=== PATIENT | female | born 1960 | race African-American/Black ===

== ENCOUNTER 2017-01-22 15:46 | Emergency (ER) | payer SELFPAY ==
[~2017-01-22] VITALS: Ht 149.9 cm; Wt 64.0 kg
[2017-01-22] MEDS ORDERED: KETOROLAC 60MG/2ML VIAL IM ONE (18:15)
[2017-01-22 19:14] VITALS: BP 130/88
== END 2017-01-22 19:25 | disposition home or self-care (01) ==
LOC: ER 16:58
DX: M65.4 Radial styloid tenosynovitis [de Quervain] (principal); M25.521 Pain in right elbow; F12.10 Cannabis abuse, uncomplicated; X58.XXXA Exposure to other specified factors, initial encounter; Y93.89 Activity, other specified; Y92.89 Other specified places as the place of occurrence of the external cause; Y99.8 Other external cause status
CPT/HCPCS: 96372; 99283; J1885

== ENCOUNTER 2017-01-28 10:48 | Emergency (ER) | payer SELFPAY ==
[~2017-01-28] VITALS: Ht 149.9 cm; Wt 64.0 kg
[2017-01-28 12:43] VITALS: BP 142/77
[2017-01-28] MEDS ORDERED: KETOROLAC 60MG/2ML VIAL IM ONE (12:45)
== END 2017-01-28 13:10 | disposition home or self-care (01) ==
LOC: ER 12:07
DX: M65.4 Radial styloid tenosynovitis [de Quervain] (principal); I10 Essential (primary) hypertension; F12.10 Cannabis abuse, uncomplicated; F17.200 Nicotine dependence, unspecified, uncomplicated; Z98.890 Other specified postprocedural states
CPT/HCPCS: 29125; 96372; 99283; J1885

== ENCOUNTER 2017-02-24 11:52 | Inpatient (IN) | payer SELFPAY ==
[~2017-02-24] VITALS: Ht 154.9 cm; Wt 70.5 kg
[2017-02-24] MEDS ORDERED: KETOROLAC 30MG/ML VIAL IV STA (13:52)
[2017-02-24] MEDS ORDERED: SODIUM CHLORIDE 0.9% 1,000 ML IV ONE (13:52)
[2017-02-24] MEDS ORDERED: ONDANSETRON HCL 4MG/2ML VIAL IV STA (13:52)
[2017-02-24 14:18] LABS: HEMATOCRIT. 33.5 % (36.0-48.0); HEMOGLOBIN. 11.3 g/dL (12.0-16.0); MEAN CORPUSCULAR HEMOGLOBIN 30.7 pg (28.0-32.0); MEAN CORPUSCULAR VOLUME 91.1 fL (81.0-99.0); MEAN PLATELET VOLUME 7.6 fl (7.4-10.4); PLATELET 313 x1000/uL (130-400); RED BLOOD CELL COUNT 3.68 mill/uL (4.2-5.4); RED CELL DISTRIBUTION WIDTH 14.2 % (11.6-14.6)
[2017-02-24 14:24] LABS: CHLORIDE 103 mEq/L (98-107)
[2017-02-24 14:26] LABS: INR 1.1; PROTHROMBIN TIME 11.4 sec
[2017-02-24 14:30] LABS: CARBON DIOXIDE 24 mEq/L (21-32)
[2017-02-24 15:21] LABS: PLATELET ESTIMATE NORMAL
[2017-02-24 15:41] LABS: CLARITY URINE CLOUDY (CLEAR); COLOR URINE YELLOW (YELLOW); GLUCOSE URINE NEGATIVE (NEGATIVE); KETONES URINE NEGATIVE (NEGATIVE); LEUKOCYTE ESTERASE URINE 3+ (NEGATIVE); NITRITE URINE NEGATIVE (NEGATIVE); OCCULT BLOOD URINE TRACE (NEGATIVE); PROTEIN URINE NEGATIVE (NEGATIVE); SPECIFIC GRAVITY URINE 1.011 (1.005-1.030)
[2017-02-24] MEDS ORDERED: SODIUM CHLORIDE 0.45% 1,000 ML IV SCH (20:02)
[2017-02-24] MEDS ORDERED: NA PHOS,M-B/NA PHOS,DI-BA ENEMA 118ML PR PRN (20:15)
[2017-02-24] MEDS ORDERED: CLONIDINE 0.1MG TABLET PO PRN (20:15)
[2017-02-24] MEDS ORDERED: LORAZEPAM 2MG/ML CPJ IV PRN (20:15)
[2017-02-24] MEDS ORDERED: ONDANSETRON HCL 4MG/2ML VIAL IV PRN (20:15)
[2017-02-24] MEDS ORDERED: MAGNESIUM/ALUMINUM HYDROXIDE/SIMETHICONE 30ML UDC PO PRN (20:15)
[2017-02-24] MEDS ORDERED: DOCUSATE SODIUM 100MG CAPSULE PO PRN (20:15)
[2017-02-24] MEDS ORDERED: IPRATROPIUM/ALBUTEROL 0.5-3(2.5)MG/3ML NEB INH PRN (20:15)
[2017-02-24] MEDS ORDERED: GUAIFENESIN 200MG/10ML SUGAR FREE UDC PO PRN (20:15)
[2017-02-24] MEDS: HYDROCODONE/ACETAMINOPHEN 10/325MG TABLET PO PRN (21:00)
[2017-02-24] MEDS ORDERED: LEVOFLOXACIN 500MG PREMIX 100 ML IV NR (21:15)
[2017-02-24] MEDS ORDERED: METRONIDAZOLE 500 MG PREMIX 100 ML IV NR (21:15)
[2017-02-24] MEDS: ENOXAPARIN 30MG/0.3ML SYR SUBCUT SCH (21:25)
[2017-02-24 22:35] VITALS: BP 91/40
[2017-02-24 23:00] VITALS: BP 91/40
[2017-02-25] VITALS (11 sets, daily range): BP systolic 71–140; BP diastolic 20–99
[2017-02-25] MEDS: ACETAMINOPHEN 325MG TABLET PO PRN (00:42)
[2017-02-25] MEDS: HYDROMORPHONE HCL/PF 2MG/ML CPJ IV PRN (01:12)
[2017-02-25] MEDS ORDERED: ACETAMINOPHEN 650MG SUPP PR PRN (01:15)
[2017-02-25 02:35] LABS: TROPONIN I 0.03 ng/mL (0.00-0.04)
[2017-02-25] MEDS: POTASSIUM CHLORIDE INJ 10 MEQ in SODIUM CHLORIDE 0.45% 1,000 ML IV SCH ×2 (03:06→10:52)
[2017-02-25] MEDS ORDERED: SODIUM CHLORIDE 0.45% 1,000 ML IV SCH ×2 (04:00)
[2017-02-25] MEDS: METRONIDAZOLE 500 MG PREMIX 100 ML IV SCH ×2 (05:55→14:34)
[2017-02-25] MEDS ORDERED: SODIUM CHLORIDE 0.9% 1000ML BAG (SEPSIS BOLUS) IV ONE (07:45)
[2017-02-25] MEDS ORDERED: SODIUM CHLORIDE 0.9% 500 ML IV ONE (08:00)
[2017-02-25 11:31] LABS: HEMATOCRIT. 27.3 % (36.0-48.0); HEMOGLOBIN. 9.1 g/dL (12.0-16.0); MEAN CORPUSCULAR HEMOGLOBIN 30.9 pg (28.0-32.0); MEAN CORPUSCULAR VOLUME 92.1 fL (81.0-99.0); MEAN PLATELET VOLUME 7.6 fl (7.4-10.4); PLATELET 235 x1000/uL (130-400); RED BLOOD CELL COUNT 2.96 mill/uL (4.2-5.4); RED CELL DISTRIBUTION WIDTH 14.6 % (11.6-14.6)
[2017-02-25 11:53] LABS: CARBON DIOXIDE 22 mEq/L (21-32); CHLORIDE 104 mEq/L (98-107); CREATINE KINASE 615 IU/L (26-192); CREATINE KINASE MB FRACTION 2.8 ng/mL (0.5-3.6); HDL CHOLESTEROL 12 mg/dL (40-59); LDL CHOLESTEROL 28 mg/dL (5-100)
[2017-02-25] MEDS ORDERED: ALBUMIN HUMAN 25GM/500ML (5%) IV SCH (12:00)
[2017-02-25 13:14] LABS: PLATELET ESTIMATE NORMAL
[2017-02-25] MEDS ORDERED: LEVOFLOXACIN 500MG PREMIX 100 ML IV SCH (20:00)
[2017-02-25] MEDS: ENOXAPARIN 30MG/0.3ML SYR SUBCUT SCH (21:00)
[2017-02-26] VITALS (7 sets, daily range): BP systolic 78–111; BP diastolic 26–63
[2017-02-26] MEDS: POTASSIUM CHLORIDE INJ 10 MEQ in SODIUM CHLORIDE 0.45% 1,000 ML IV SCH ×3 (00:04→10:18)
[2017-02-26] MEDS: LEVOFLOXACIN 250MG PREMIX 50 ML IV SCH ×2 (00:07→21:22)
[2017-02-26] MEDS: METRONIDAZOLE 500 MG PREMIX 100 ML IV SCH ×4 (01:16→21:22)
[2017-02-26] MEDS: HYDROCODONE/ACETAMINOPHEN 10/325MG TABLET PO PRN ×2 (03:15→18:58)
[2017-02-26 06:34] LABS: HEMOGLOBIN. 8.7 g/dL (12.0-16.0); MEAN CORPUSCULAR HEMOGLOBIN 30.5 pg (28.0-32.0); MEAN CORPUSCULAR VOLUME 91.5 fL (81.0-99.0); MEAN PLATELET VOLUME 7.8 fl (7.4-10.4); PLATELET 216 x1000/uL (130-400); RED BLOOD CELL COUNT 2.84 mill/uL (4.2-5.4); RED CELL DISTRIBUTION WIDTH 14.6 % (11.6-14.6)
[2017-02-26 08:04] LABS: TROPONIN I 0.45 ng/mL (0.00-0.04)
[2017-02-26 11:44] LABS: PLATELET ESTIMATE NORMAL
[2017-02-26] MEDS: ENOXAPARIN 30MG/0.3ML SYR SUBCUT SCH (21:22)
[2017-02-27] VITALS (13 sets, daily range): BP systolic 99–152; BP diastolic 44–77
[2017-02-27 02:59] LABS: URIC ACID URINE (RAW) 39 mg/dL; URIC ACID URINE 24 HR 429 mg/24hr (250-750)
[2017-02-27 04:52] LABS: HEMATOCRIT. 29.5 % (36.0-48.0); HEMOGLOBIN. 9.9 g/dL (12.0-16.0); MEAN CORPUSCULAR HEMOGLOBIN 30.9 pg (28.0-32.0); MEAN CORPUSCULAR VOLUME 91.5 fL (81.0-99.0); MEAN PLATELET VOLUME 7.9 fl (7.4-10.4); PLATELET 202 x1000/uL (130-400); RED BLOOD CELL COUNT 3.22 mill/uL (4.2-5.4); RED CELL DISTRIBUTION WIDTH 14.9 % (11.6-14.6)
[2017-02-27] MEDS: METRONIDAZOLE 500 MG PREMIX 100 ML IV SCH ×3 (05:00→21:05)
[2017-02-27] MEDS: POTASSIUM CHLORIDE INJ 10 MEQ in SODIUM CHLORIDE 0.45% 1,000 ML IV SCH (05:00)
[2017-02-27 05:49] LABS: TROPONIN I 0.08 ng/mL (0.00-0.04)
[2017-02-27 09:56] LABS: PLATELET ESTIMATE NORMAL
[2017-02-27] MEDS: HYDROCODONE/ACETAMINOPHEN 10/325MG TABLET PO PRN (15:44)
[2017-02-27] MEDS: ENOXAPARIN 30MG/0.3ML SYR SUBCUT SCH (20:26)
[2017-02-27] MEDS: SODIUM CHLORIDE 0.45% 1,000 ML IV SCH (20:31)
[2017-02-27] MEDS: DIPHENHYDRAMINE 50MG/ML VIAL IV PRN (20:32)
[2017-02-28] VITALS (11 sets, daily range): BP systolic 121–149; BP diastolic 57–93
[2017-02-28] MEDS: SODIUM CHLORIDE 0.45% 1,000 ML IV SCH ×2 (05:26→17:35)
[2017-02-28] MEDS: METRONIDAZOLE 500 MG PREMIX 100 ML IV SCH ×3 (05:40→20:56)
[2017-02-28 10:05] LABS: BASOPHILS % 0.5 % (0.0-2.0); EOSINOPHILS % 0.3 % (0.0-5.0); HEMATOCRIT. 27.6 % (36.0-48.0); HEMOGLOBIN. 9.5 g/dL (12.0-16.0); LYMPHOCYTES % 11.2 % (20.0-50.0); MEAN CORPUSCULAR VOLUME 90.1 fL (81.0-99.0); MEAN PLATELET VOLUME 8.3 fl (7.4-10.4); MONOCYTES % 4.3 % (2.0-8.0); NEUTROPHILS % 83.7 % (40.0-76.0); PLATELET 197 x1000/uL (130-400); RED BLOOD CELL COUNT 3.06 mill/uL (4.2-5.4)
[2017-02-28] MEDS: ENOXAPARIN 30MG/0.3ML SYR SUBCUT SCH (20:56)
[2017-02-28] MEDS ORDERED: LEVOFLOXACIN 250MG PREMIX 50 ML IV SCH (21:00)
[2017-03-01] VITALS (20 sets, daily range): BP systolic 102–149; BP diastolic 60–91
[2017-03-01] MEDS: METRONIDAZOLE 500 MG PREMIX 100 ML IV SCH ×3 (05:20→21:57)
[2017-03-01] MEDS: SODIUM CHLORIDE 0.45% 1,000 ML IV SCH ×3 (05:21→22:17)
[2017-03-01] MEDS: HYDROMORPHONE HCL/PF 2MG/ML CPJ IV PRN ×2 (06:14→17:42)
[2017-03-01 06:47] LABS: BASOPHILS % 0.8 % (0.0-2.0); HEMATOCRIT. 22.7 % (36.0-48.0); HEMOGLOBIN. 7.8 g/dL (12.0-16.0); LYMPHOCYTES % 13.5 % (20.0-50.0); MEAN CORPUSCULAR VOLUME 90.6 fL (81.0-99.0); MEAN PLATELET VOLUME 7.3 fl (7.4-10.4); MONOCYTES % 8.4 % (2.0-8.0); NEUTROPHILS % 76.3 % (40.0-76.0); PLATELET 143 x1000/uL (130-400); RED CELL DISTRIBUTION WIDTH 14.8 % (11.6-14.6)
[2017-03-01] MEDS: ACETAMINOPHEN 325MG TABLET PO PRN (20:08)
[2017-03-01] MEDS ORDERED: LEVOFLOXACIN 250MG TABLET PO SCH (21:00)
[2017-03-01] MEDS: DIPHENHYDRAMINE 50MG/ML VIAL IV PRN (21:57)
[2017-03-01] MEDS: ENOXAPARIN 30MG/0.3ML SYR SUBCUT SCH (21:58)
[2017-03-02] VITALS (7 sets, daily range): BP systolic 108–164; BP diastolic 64–93
[2017-03-02 05:56] LABS: BASOPHILS % 0.7 % (0.0-2.0); EOSINOPHILS % 1.5 % (0.0-5.0); HEMATOCRIT. 32.1 % (36.0-48.0); LYMPHOCYTES % 8.3 % (20.0-50.0); MEAN CORPUSCULAR HEMOGLOBIN 30.3 pg (28.0-32.0); MEAN CORPUSCULAR VOLUME 87.2 fL (81.0-99.0); MEAN PLATELET VOLUME 7.8 fl (7.4-10.4); MONOCYTES % 9.6 % (2.0-8.0); NEUTROPHILS % 79.9 % (40.0-76.0); PLATELET 148 x1000/uL (130-400); RED BLOOD CELL COUNT 3.67 mill/uL (4.2-5.4); RED CELL DISTRIBUTION WIDTH 16.1 % (11.6-14.6)
[2017-03-02] MEDS: ACETAMINOPHEN 325MG TABLET PO PRN ×2 (06:06→14:50)
[2017-03-02] MEDS: METRONIDAZOLE 500MG TABLET PO SCH ×2 (06:10→14:18)
[2017-03-02] MEDS: SODIUM CHLORIDE 0.45% 1,000 ML IV SCH ×2 (06:10→12:13)
[2017-03-02 06:41] LABS: HEMOGLOBIN. 11.1 g/dL (12.0-16.0)
== END 2017-03-02 15:20 | disposition home or self-care (01) | DRG 720 ==
LOC: ER 12:01 → 6EST 19:15 → EDBEDREQ 20:08 → ENRESERV 21:37 → 6WST 02-25 02:38 → 5EST 02-25 10:06
PROVIDERS: ADMIT Internal Medicine; ATTEND Internal Medicine
PROC: 02HV33Z Insertion of Infusion Device into Superior Vena Cava, Percutaneous Approach (ICD-10-PCS; principal; 2017-02-27)
PROC: B548ZZA Ultrasonography of Superior Vena Cava, Guidance (ICD-10-PCS; 2017-02-27)
PROC: 30233N1 Transfusion of Nonautologous Red Blood Cells into Peripheral Vein, Percutaneous Approach (ICD-10-PCS; 2017-03-01)
DX: A41.9 Sepsis, unspecified organism (principal); N17.0 Acute kidney failure with tubular necrosis; R65.21 Severe sepsis with septic shock; E46 Unspecified protein-calorie malnutrition; E27.8 Other specified disorders of adrenal gland; I11.9 Hypertensive heart disease without heart failure; D64.9 Anemia, unspecified; F17.210 Nicotine dependence, cigarettes, uncomplicated; K57.30 Diverticulosis of large intestine without perforation or abscess without bleeding; N39.0 Urinary tract infection, site not specified; K80.20 Calculus of gallbladder without cholecystitis without obstruction; E86.0 Dehydration; N13.2 Hydronephrosis with renal and ureteral calculous obstruction; Z59.0 Homelessness; Z68.29 Body mass index [BMI] 29.0-29.9, adult
CPT/HCPCS: 36415; 36569; 71010; 74176; 76937; 80048; 80053; 80061; 81001; 82550; 82553; 82962; 83690; 84484; 84560; 85025; 85610; 86850; 86900; 86920; 87040; 93005; 93306; 96361; 96365; 96372; 96375; 99285; C1725; C1893; J1170; J1200; J1650; J1885; J1956; J2405; J3480; J3490; J7030; J7040; J7050; P9016; P9041

== ENCOUNTER 2017-03-14 07:36 | Inpatient (IN) | payer MEDICAID, OTHER ==
[~2017-03-14] VITALS: Ht 149.9 cm; Wt 70.8 kg
[2017-03-14] MEDS ORDERED: ACETAMINOPHEN 325MG TABLET PO STA (07:46)
[2017-03-14] MEDS ORDERED: SODIUM CHLORIDE 0.9% 1,000 ML IV ONE ×2 (07:46→08:31)
[2017-03-14 08:05] LABS: BASOPHILS % 0.4 % (0.0-2.0); EOSINOPHILS % 0.2 % (0.0-5.0); HEMATOCRIT. 32.9 % (36.0-48.0); HEMOGLOBIN. 10.9 g/dL (12.0-16.0); LYMPHOCYTES % 9.9 % (20.0-50.0); MEAN CORPUSCULAR HEMOGLOBIN 29.5 pg (28.0-32.0); MEAN CORPUSCULAR VOLUME 88.7 fL (81.0-99.0); MEAN PLATELET VOLUME 7.3 fl (7.4-10.4); MONOCYTES % 0.9 % (2.0-8.0); NEUTROPHILS % 88.6 % (40.0-76.0); PLATELET 216 x1000/uL (130-400); RED BLOOD CELL COUNT 3.71 mill/uL (4.2-5.4); RED CELL DISTRIBUTION WIDTH 15.7 % (11.6-14.6)
[2017-03-14 08:12] LABS: INR 1.1; PROTHROMBIN TIME 10.9 sec (9.4-11.6)
[2017-03-14 08:23] LABS: CARBON DIOXIDE 17 mEq/L (21-32); CHLORIDE 101 mEq/L (98-107)
[2017-03-14] MEDS ORDERED: VANCOMYCIN 1 G PREMIX 200 ML IV SCH (08:45)
[2017-03-14] MEDS ORDERED: PIPERACILLIN/TAZOBACTAM 3.375GM/50ML PREMIX IV ONE (08:45)
[2017-03-14] MEDS ORDERED: PIPERACILLIN/TAZ 3.375G PREMIX 50 ML IV SCH ×3 (09:00→20:00)
[2017-03-14] MEDS ORDERED: KETOROLAC 30MG/ML VIAL IV ONE (09:00)
[2017-03-14] MEDS ORDERED: METOCLOPRAMIDE HCL 10MG/2ML VIAL IV ONE (09:00)
[2017-03-14 09:25] LABS: CLARITY URINE CLOUDY (CLEAR); COLOR URINE YELLOW (YELLOW); GLUCOSE URINE NEGATIVE (NEGATIVE); KETONES URINE NEGATIVE (NEGATIVE); LEUKOCYTE ESTERASE URINE 3+ (NEGATIVE); NITRITE URINE NEGATIVE (NEGATIVE); OCCULT BLOOD URINE 1+ (NEGATIVE); PH URINE 5.5 (4.5-8.0); PROTEIN URINE 1+ (NEGATIVE); SPECIFIC GRAVITY URINE 1.017 (1.005-1.030); UROBILINOGEN URINE 0.2 E.U./dL (0.2-1.0)
[2017-03-14 11:30] VITALS: BP 87/43
[2017-03-14] MEDS: SODIUM CHLORIDE 0.9% 1,000 ML IV SCH ×2 (12:47→23:40)
[2017-03-14 15:19] LABS: HEMOGLOBIN. 9.7 g/dL (12.0-16.0); MEAN CORPUSCULAR HEMOGLOBIN 29.7 pg (28.0-32.0); MEAN PLATELET VOLUME 7.9 fl (7.4-10.4); PLATELET 194 x1000/uL (130-400); RED BLOOD CELL COUNT 3.26 mill/uL (4.2-5.4); RED CELL DISTRIBUTION WIDTH 15.5 % (11.6-14.6)
[2017-03-14 17:45] LABS: PLATELET ESTIMATE NORMAL
[2017-03-14] MEDS: ACETAMINOPHEN 650MG/20.3ML UDC PO PRN (18:02)
[2017-03-14 18:36] VITALS: BP 88/49
[2017-03-14 20:00] VITALS: BP 111/61
[2017-03-15] VITALS: BP 108/63
[2017-03-15] MEDS ORDERED: PIPERACILLIN/TAZ 3.375G PREMIX 50 ML IV SCH
[2017-03-15] MEDS: PIPERACILLIN/TAZ 2.25G PREMIX 50 ML IV SCH ×3 (02:00→17:59)
[2017-03-15] MEDS: ACETAMINOPHEN 650MG/20.3ML UDC PO PRN ×2 (02:03→13:29)
[2017-03-15 04:00] VITALS: BP 102/61
[2017-03-15 08:00] VITALS: BP 113/66
[2017-03-15] MEDS: SODIUM CHLORIDE 0.9% 1,000 ML IV SCH ×2 (08:49→18:00)
[2017-03-15 12:00] VITALS: BP 98/59
[2017-03-15 16:00] VITALS: BP 105/63
[2017-03-15] MEDS ORDERED: ACETAMINOPHEN 325MG TABLET PO PRN (16:30)
[2017-03-15] MEDS ORDERED: HYDROCODONE/ACETAMINOPHEN 5/325MG TABLET PO PRN (16:30)
[2017-03-15] MEDS ORDERED: IPRATROPIUM/ALBUTEROL 0.5-3(2.5)MG/3ML NEB INH PRN (16:30)
[2017-03-15] MEDS ORDERED: DOCUSATE SODIUM 100MG CAPSULE PO PRN (16:30)
[2017-03-15] MEDS ORDERED: DIPHENHYDRAMINE 50MG/ML VIAL IV PRN (16:30)
[2017-03-15] MEDS ORDERED: ACETAMINOPHEN 650MG/20.3ML UDC GT PRN (16:30)
[2017-03-15] MEDS ORDERED: GUAIFENESIN 200MG/10ML SUGAR FREE UDC PO PRN (16:30)
[2017-03-15] MEDS ORDERED: ONDANSETRON HCL 4MG/2ML VIAL IV PRN (16:30)
[2017-03-15] MEDS ORDERED: NA PHOS,M-B/NA PHOS,DI-BA ENEMA 118ML PR PRN (17:00)
[2017-03-15] MEDS ORDERED: DIATR MEGLU/DIATRIZOATE SOLN 30ML PO SCH (17:30)
[2017-03-15 17:47] LABS: BASOPHILS % 0.6 % (0.0-2.0); CARBON DIOXIDE 23 mEq/L (21-32); CHLORIDE 110 mEq/L (98-107); EOSINOPHILS % 1.4 % (0.0-5.0); HEMATOCRIT. 28.3 % (36.0-48.0); HEMOGLOBIN. 9.4 g/dL (12.0-16.0); LYMPHOCYTES % 14.3 % (20.0-50.0); MEAN CORPUSCULAR HEMOGLOBIN 29.5 pg (28.0-32.0); MEAN CORPUSCULAR VOLUME 88.7 fL (81.0-99.0); MEAN PLATELET VOLUME 8.5 fl (7.4-10.4); MONOCYTES % 6.9 % (2.0-8.0); NEUTROPHILS % 76.8 % (40.0-76.0); PLATELET 155 x1000/uL (130-400); RED BLOOD CELL COUNT 3.19 mill/uL (4.2-5.4); RED CELL DISTRIBUTION WIDTH 16.1 % (11.6-14.6)
[2017-03-15 20:00] VITALS: BP 107/56
[2017-03-15] MEDS: SODIUM CHLORIDE 0.9% INJ 3ML FLUSH IVF SCH (20:42)
[2017-03-15 23:24] LABS: GLUCOSE URINE NEGATIVE (NEGATIVE); KETONES URINE NEGATIVE (NEGATIVE); LEUKOCYTE ESTERASE URINE 2+ (NEGATIVE); NITRITE URINE NEGATIVE (NEGATIVE); OCCULT BLOOD URINE TRACE (NEGATIVE); PROTEIN URINE NEGATIVE (NEGATIVE); SPECIFIC GRAVITY URINE 1.014 (1.005-1.030); UROBILINOGEN URINE 0.2 E.U./dL (0.2-1.0)
[2017-03-15 23:35] LABS: CLARITY URINE SL HAZY (CLEAR); COLOR URINE YELLOW (YELLOW)
[2017-03-15 23:36] LABS: *AMPHETAMINES SCREEN URINE NEGATIVE (NEGATIVE); *BARBITURATES SCREEN URINE NEGATIVE (NEGATIVE); *BENZODIAZEPINES SCREEN URINE NEGATIVE (NEGATIVE); *COCAINE SCREEN URINE PRESUMTIVE POSITIVE (NEGATIVE); CANNABINOID URINE SCREEN NEGATIVE (NEGATIVE); METHADONE URINE SCREEN NEGATIVE (NEGATIVE); OPIATES URINE SCREEN NEGATIVE (NEGATIVE); PHENCYCLIDINE URINE SCREEN NEGATIVE (NEGATIVE)
[2017-03-16] VITALS: BP 126/64
[2017-03-16] MEDS: PIPERACILLIN/TAZ 2.25G PREMIX 50 ML IV SCH ×2 (01:44→09:42)
[2017-03-16] MEDS: SODIUM CHLORIDE 0.9% INJ 3ML FLUSH IVF SCH ×3 (01:45→21:05)
[2017-03-16] MEDS: SODIUM CHLORIDE 0.9% 1,000 ML IV SCH ×2 (01:45→13:51)
[2017-03-16 04:00] VITALS: BP 95/62
[2017-03-16 07:22] LABS: BASOPHILS % 0.7 % (0.0-2.0); EOSINOPHILS % 1.6 % (0.0-5.0); HEMATOCRIT. 27.9 % (36.0-48.0); HEMOGLOBIN. 9.3 g/dL (12.0-16.0); LYMPHOCYTES % 21.6 % (20.0-50.0); MEAN CORPUSCULAR HEMOGLOBIN 29.9 pg (28.0-32.0); MEAN CORPUSCULAR VOLUME 89.1 fL (81.0-99.0); MEAN PLATELET VOLUME 8.6 fl (7.4-10.4); MONOCYTES % 8.3 % (2.0-8.0); NEUTROPHILS % 67.8 % (40.0-76.0); PLATELET 150 x1000/uL (130-400); RED BLOOD CELL COUNT 3.13 mill/uL (4.2-5.4); RED CELL DISTRIBUTION WIDTH 16.3 % (11.6-14.6)
[2017-03-16 07:30] VITALS: BP 131/65
[2017-03-16 07:51] LABS: CARBON DIOXIDE 21 mEq/L (21-32); CHLORIDE 110 mEq/L (98-107)
[2017-03-16 12:09] VITALS: BP 121/66
[2017-03-16 14:00] VITALS: BP 165/81
[2017-03-16] MEDS ORDERED: LEVOFLOXACIN 500MG TABLET PO SCH (17:00)
[2017-03-16] MEDS: CLONIDINE 0.1MG TABLET PO PRN (18:46)
[2017-03-16 20:00] VITALS: BP 144/74
[2017-03-17] VITALS (7 sets, daily range): BP systolic 132–152; BP diastolic 71–83
[2017-03-17] MEDS: SODIUM CHLORIDE 0.9% 1,000 ML IV SCH ×2 (00:38→10:30)
[2017-03-17] MEDS: SODIUM CHLORIDE 0.9% INJ 3ML FLUSH IVF SCH ×2 (04:59→14:10)
[2017-03-17] MEDS ORDERED: LEVOFLOXACIN 250MG TABLET PO SCH (11:00)
[2017-03-17] MEDS ORDERED: HYDRALAZINE 20MG/ML VIAL IV NR (16:45)
[2017-03-17] MEDS: CLONIDINE 0.1MG TABLET PO PRN (18:23)
== END 2017-03-17 20:45 | disposition home or self-care (01) | DRG 720 ==
LOC: ER 08:02 → 7WST 09:02 → EDBEDREQ 10:48 → ENRESERV 10:50
PROVIDERS: ADMIT Family Medicine; ATTEND Family Medicine
DX: A41.50 Gram-negative sepsis, unspecified (principal); N17.0 Acute kidney failure with tubular necrosis; E11.22 Type 2 diabetes mellitus with diabetic chronic kidney disease; E44.1 Mild protein-calorie malnutrition; N39.0 Urinary tract infection, site not specified; D63.8 Anemia in other chronic diseases classified elsewhere; B96.1 Klebsiella pneumoniae [K. pneumoniae] as the cause of diseases classified elsewhere; B96.89 Other specified bacterial agents as the cause of diseases classified elsewhere; E66.9 Obesity, unspecified; Z68.31 Body mass index [BMI] 31.0-31.9, adult; F17.210 Nicotine dependence, cigarettes, uncomplicated; I12.9 Hypertensive chronic kidney disease with stage 1 through stage 4 chronic kidney disease, or unspecified chronic kidney disease; N13.2 Hydronephrosis with renal and ureteral calculous obstruction; N18.9 Chronic kidney disease, unspecified; Z59.0 Homelessness; Z71.6 Tobacco abuse counseling
CPT/HCPCS: 36415; 71010; 74176; 76700; 80048; 80053; 80076; 80305; 81001; 83605; 85025; 85610; 87040; 87077; 87086; 87186; 93005; 93970; 96361; 96365; 96368; 96375; 99291; J0360; J1200; J1885; J2543; J2765; J3370; J7030; Q9963